=== PATIENT | male | born 1965 | race Caucasian/White ===

== ENCOUNTER 2016-12-02 20:49 | Emergency (ER) | payer SELFPAY ==
[~2016-12-02] VITALS: Ht 172.7 cm; Wt 79.5 kg
[2016-12-02] MEDS ORDERED: GLIP5 PO (21:05)
[2016-12-02] MEDS ORDERED: HYDROCODONE/ACETAMINOPHEN 10-325 MG TABLET PO ONE (21:30)
[2016-12-02] MEDS: KETOROLAC TROMETHAMINE 60 MG/2 ML VIAL IM ONE ×2 (22:51→23:26)
[2016-12-02] MEDS: CYCLOBENZAPRINE HCL 10 MG TABLET PO ONE ×2 (22:51→23:25)
[2016-12-02 23:41] VITALS: BP 155/93
== END 2016-12-02 23:45 | disposition home or self-care (01) ==
LOC: EMS 20:51
DX: S16.1XXA Strain of muscle, fascia and tendon at neck level, initial encounter (principal); S29.012A Strain of muscle and tendon of back wall of thorax, initial encounter; E11.9 Type 2 diabetes mellitus without complications; F12.90 Cannabis use, unspecified, uncomplicated; W01.0XXA Fall on same level from slipping, tripping and stumbling without subsequent striking against object, initial encounter; Y93.89 Activity, other specified; Y92.89 Other specified places as the place of occurrence of the external cause; Y99.8 Other external cause status
CPT/HCPCS: 72100; 99284; J1885